=== PATIENT | female | born 1975 | race Caucasian/White ===

== ENCOUNTER 2021-04-29 05:05 | Emergency (ER) | payer BC ==
[2021-04-29 06:06] LABS: ANION GAP 17.1 mEq/L (7-13)
[2021-04-29] MEDS ORDERED: Sodium Chloride 0.9% 1,000 ML IV ONE (06:07)
[2021-04-29] MEDS ORDERED: Ondansetron 4 MG/2 ML SDV IVPUSH ONE (06:08)
--- NOTE | 2021-04-29 06:31 | EDM.PDOC ---
<Eduardo Gilliland M - Last Filed: 04/29/21 09:28> ED HPI GENERAL MEDICAL PROBLEM - General Chief Complaint: Genitourinary Problem Stated Complaint: STOMACH PAIN Time Seen by Provider: 04/29/21 05:30 - Related Data Allergies Allergy/AdvReac Type Severity Reaction Status Date / Time codeine Allergy Nausea and Verified 04/29/21 05:16 Vomiting Home Meds: Home Meds Fluticasone/Umeclidin/Vilanter [Trelegy Ellipta 100-62.5-25] 1 inh INH DAILY 04/29/21 [History] Topiramate [Trokendi Xr] 50 mg PO BID 04/29/21 [History] buPROPion HCL [Bupropion Xl] 300 mg PO DAILY 04/29/21 [History] busPIRone [Buspar] 10 mg PO BID 04/29/21 [History] metFORMIN HCl [Metformin HCl] 500 mg PO DAILY 04/29/21 [History] traZODone HCl [Trazodone HCl] 100 mg PO DAILY 04/29/21 [History] Course - Re-Assessments/Exams Free Text/Narrative Re-Assessment/Exam: 04/29/21 08:17 Patient care was taken over at shift change. The patient reports an increase in anxiety due to being in the ED. The patient was advised of the lab results. Treatment for her UTI was initiated with an IV dose of Cipro. The patient reported she did have a yeast infection the previous time she was started on antibiotics for a UTI. Departure - Departure Time of Disposition: 09:28 Disposition: Home, Self-Care 01 Condition: Fair Clinical Impression: UTI, Urinary tract infectious disease, Kidney stone - Discharge Information *PRESCRIPTION DRUG MONITORING PROGRAM REVIEWED*: Not Applicable *COPY OF PRESCRIPTION DRUG MONITORING REPORT IN PATIENT ROXANNA: Not Applicable Instructions: Kidney Stones, [id number], Urinary Tract Infection, Adult, [id number] Forms: ED Department Discharge Care Plan Goals: The patient was advised of the examination, lab, EKG and CT results during the visit. The patient was given a dose of IV Cipro while in the ED. The patient was discharged with a script for Cipro (500 mg) #10 to take 1 by mouth 2 times per day for 5 days and Diflucan (150 mg) #1 to take 1 by mouth at symptom onset. If the patient has any additional symptoms or concerns, the patient should either return to the ED or visit her primary care facility. <Carolina Winn - Last Filed: 05/03/21 02:16> ED HPI GENERAL MEDICAL PROBLEM - General Source of Information: Reports: Patient, RN History Limitations: Reports: No Limitations - History of Present Illness INITIAL COMMENTS - FREE TEXT/NARRATIVE: ED urinary frequency past week, does not feel like emptying bladder, burning earlier, none now. No fever or chills, diabetic , oral agent,. Nausea , some dry heaves, loss of appetite, no constipation. reports mostly diarrhea from metformin. 20# weight loss since February. Lower Back Pain Score (Numeric/FACES): 8 Past Medical History Respiratory History: Reports: COPD Genitourinary History: Reports: UTI, Recurrent Psychiatric History: Reports: Depression, Suicide Attempt - Past Surgical History HEENT Surgical History: Reports: Tonsillectomy GI Surgical History: Reports: Cholecystectomy Female Surgical History: Reports: Hysterectomy, Other (See Below) Other Female Surgeries/Procedures: bladder sling Social & Family History - Tobacco Use Tobacco Use Status *Q: Never Tobacco User Second Hand Smoke Exposure: No - Recreational Drug Use Recreational Drug Use: No ED ROS GENERAL - Review of Systems Review Of Systems: Comprehensive ROS is negative, except as noted in HPI. ED EXAM, RENAL/ - Physical Exam Exam: See Below Exam Limited By: No Limitations General Appearance: Alert, Mild Distress, Obese Eye Exam: Bilateral Eye: EOMI Ears: Normal External Exam, Hearing Grossly Normal Nose: Normal Inspection Throat/Mouth: Normal Inspection Head: Atraumatic, Normocephalic Neck: Normal Inspection Respiratory/Chest: No Respiratory Distress, Lungs Clear, Normal Breath Sounds Cardiovascular: Regular Rate, Rhythm GI/Abdominal: Normal Bowel Sounds, Soft, Non-Tender Back Exam: No: CVA Tenderness (L), CVA Tenderness (R) Extremities: Normal Inspection, Normal Range of Motion Neurological: Alert, Oriented, Normal Cognition Psychiatric: Flat Affect Skin Exam: Warm, Dry, Pallor #1 Interpretation EKG Date: 04/29/21 Time: 05:28 Rhythm: NSR Rate (Beats/Min): 69 [place]: Normal P-Wave: Present QRS: Normal ST-T: Normal Comparison: NA - No Prior EKG Course - Vital Signs Last Recorded V/S: Last Vital Signs Temp 96.9 F 04/29/21 05:11 Pulse 71 04/29/21 05:11 Resp 18 04/29/21 05:11 BP 83/60 L 04/29/21 05:11 Pulse Ox 95 04/29/21 05:11 - Orders/Labs/Meds Labs: Laboratory Tests 04/29/21 04/29/21 04/29/21 Range/Units 05:35 05:35 05:35 WBC 10.7 H (5.0-10.0) 10^3/uL RBC 4.71 (4.2-5.4) 10^6/uL Hgb 13.4 (12.0-16.0) g/dL Hct 41.3 (37.0-47.0) % MCV 87.7 (80-100) fL MCH 28.5 (27.0-34.0) pg MCHC 32.4 L (33.0-35.0) g/dL Plt Count 341 (150-450) 10^3/uL Neut % (Auto) 83.4 H (42.2-75.2) % Lymph % (Auto) 9.0 L (20.5-50.1) % [place] % (Auto) 6.4 (2-8) % Eos % (Auto) 1.0 (1.0-3.0) % Baso % (Auto) 0.2 (0.0-1.0) % Sodium 139 (136-145) mmol/L Potassium 4.1 (3.5-5.1) mmol/L Chloride 103 (98-107) mmol/L Carbon Dioxide 23 (21-32) mmol/L Anion Gap 17.1 H (7-13) mEq/L BUN 18 (7-18) mg/dL Creatinine 1.20 H (0.55-1.02) mg/dL Est Cr Clr Drug Dosing 47.94 mL/min Estimated GFR (MDRD) 48 BUN/Creatinine Ratio 15.0 (No establ ref range) Glucose 165 H (70-99) mg/dL Lactic Acid 1.3 (0.4-2.0) mmol/L Calcium 9.4 (8.5-10.1) mg/dL Total Bilirubin 0.4 (0.2-1.0) mg/dL AST 14 L (15-37) U/L ALT 34 (14-59) U/L Alkaline Phosphatase 82 (46-116) U/L Total Protein 8.0 (6.4-8.2) g/dL Albumin 3.7 (3.4-5.0) g/dL Globulin 4.3 Albumin/Globulin Ratio 0.9 Urine Color (YELLOW) Urine Appearance (CLEAR) Urine pH (5.0-9.0) Ur Specific [place] (1.005-1.030) Urine Protein (NEGATIVE) Urine Glucose (UA) (NEGATIVE) Urine Ketones (NEGATIVE) Urine Occult Blood (NEGATIVE) Urine Nitrite (NEGATIVE) Urine Bilirubin (NEGATIVE) Urine Urobilinogen (0.2-1.0) mg/dL Ur Leukocyte Esterase (NEGATIVE) Urine RBC /HPF Urine WBC (0-5/HPF) /HPF Ur Epithelial Cells (NOT SEEN) /HPF Calcium Oxalate Crystal (NOT SEEN) /HPF Urine Bacteria (0-FEW/HPF) /HPF Urine Yeast (NOT SEEN) /HPF // Range/Units 06:11 WBC (5.0-10.0) 10^3/uL RBC (4.2-5.4) 10^6/uL Hgb (12.0-16.0) g/dL Hct (37.0-47.0) % MCV (80-100) fL MCH (27.0-34.0) pg MCHC (33.0-35.0) g/dL Plt Count (150-450) 10^3/uL Neut % (Auto) (42.2-75.2) % Lymph % (Auto) (20.5-50.1) % [place] % (Auto) (2-8) % Eos % (Auto) (1.0-3.0) % Baso % (Auto) (0.0-1.0) % Sodium (136-145) mmol/L Potassium (3.5-5.1) mmol/L Chloride (98-107) mmol/L Carbon Dioxide (21-32) mmol/L Anion Gap (7-13) mEq/L BUN (7-18) mg/dL Creatinine (0.55-1.02) mg/dL Est Cr Clr Drug Dosing mL/min Estimated GFR (MDRD) BUN/Creatinine Ratio (No establ ref range) Glucose (70-99) mg/dL Lactic Acid (0.4-2.0) mmol/L Calcium (8.5-10.1) mg/dL Total Bilirubin (0.2-1.0) mg/dL AST (15-37) U/L ALT (14-59) U/L Alkaline Phosphatase (46-116) U/L Total Protein (6.4-8.2) g/dL Albumin (3.4-5.0) g/dL Globulin Albumin/Globulin Ratio Urine Color Dark yellow (YELLOW) Urine Appearance Slightly cloudy (CLEAR) Urine pH 5.5 (5.0-9.0) Ur Specific [place] >= 1.030 (1.005-1.030) Urine Protein 30 H (NEGATIVE) Urine Glucose (UA) Negative (NEGATIVE) Urine Ketones Trace H (NEGATIVE) Urine Occult Blood Large H (NEGATIVE) Urine Nitrite Negative (NEGATIVE) Urine Bilirubin Small H (NEGATIVE) Urine Urobilinogen 0.2 (0.2-1.0) mg/dL Ur Leukocyte Esterase Trace H (NEGATIVE) Urine RBC 50-75 H /HPF Urine WBC 10-20 H (0-5/HPF) /HPF Ur Epithelial Cells Many H (NOT SEEN) /HPF Calcium Oxalate Crystal Moderate H (NOT SEEN) /HPF Urine Bacteria Many H (0-FEW/HPF) /HPF Urine Yeast Moderate H (NOT SEEN) /HPF Meds: Medications Discontinued Medications Generic Name Dose Route Start Last Admin Trade Name Freq PRN Reason Stop Dose Admin Sodium Chloride 1,000 mls @ 999 mls/hr 04/29/21 06:07 04/29/21 06:17 Normal Saline IV 04/29/21 07:07 999 mls/hr .BOLUS ONE Administration Ciprofloxacin/Dextrose 400 mg/ 200 mls @ 200 mls/hr 04/29/21 08:12 04/29/21 08:56 Premix IV 04/29/21 09:11 200 mls/hr ONETIME ONE Administration Lorazepam 0.5 mg 04/29/21 07:56 04/29/21 08:05 Lorazepam 2 Mg/Ml Sdv IVPUSH 04/29/21 07:57 0.5 mg ONETIME ONE Administration Ondansetron HCl 4 mg 04/29/21 06:08 04/29/21 06:18 Ondansetron 4 Mg/2 Ml Sdv IVPUSH 04/29/21 06:09 4 mg ONETIME ONE Administration Sepsis Event Note (ED) - Evaluation Sepsis Screening Result: No Definite Risk
[2021-04-29] MEDS ORDERED: LORazepam 2 MG/ML SDV IVPUSH ONE (07:56)
[2021-04-29] MEDS ORDERED: Ciprofloxacin in D5W 400 MG in Premix Bag 1 BAG IV ONE ×2 (08:12)
--- NOTE | 2021-04-29 08:44 | CT ---
PROCEDURE INFORMATION: Exam: CT Abdomen And Pelvis Without Contrast Exam date and time: 04/29/2021 6:40 AM Age: 46 years old Clinical indication: Abdominal pain; Flank; Other: Bi lateral; Prior surgery; Surgery type: Cholecystectomy, partial hysterectomy; Additional info: Hematuria, abominal pain TECHNIQUE: Imaging protocol: Computed tomography of the abdomen and pelvis without contrast. Radiation optimization: All CT scans at this facility use at least one of these dose optimization techniques: automated exposure control; mA and/or kV adjustment per patient size (includes targeted exams where dose is matched to clinical indication); or iterative reconstruction. COMPARISON: No relevant prior studies available. FINDINGS: Lungs: Left lower lobe consolidation with associated air bronchograms and coarse calcifications. Pleural spaces: Left lung base pleural thickening. Liver: Normal. No mass. Gallbladder and bile ducts: The patient is status post cholecystectomy. Pancreas: Pancreatic lipomatosis Spleen: Normal. No splenomegaly. Adrenal glands: Normal. No mass. Kidneys and ureters: Mild right hydronephrosis and hydroureter which may be due to a calcification which is now within the dependent portion of the urinary bladder measuring 3 mm. No nephrolithiasis; No left hydronephrosis; There is a 3 mm calcification on image number 127 series 2 which may represent a phlebolith rather than a distal ureteric calculus Stomach and bowel: Unremarkable. No obstruction. No mucosal thickening. Appendix: No evidence of appendicitis. Intraperitoneal space: There is an elevated right hemidiaphragm present on the current examination. Vasculature: Unremarkable. No abdominal aortic aneurysm. Lymph nodes: Unremarkable. No enlarged lymph nodes. Urinary bladder: Unremarkable as visualized. Reproductive: Unremarkable as visualized. Bones/joints: Unremarkable. No acute fracture. Soft tissues: Unremarkable. IMPRESSION: 1. Left lower lobe consolidation with associated air bronchograms and coarse calcifications. 2. Mild right hydronephrosis and hydroureter which may be due to a calcification which is now within the dependent portion of the urinary bladder measuring 3 mm.
== END 2021-04-29 10:11 | disposition home or self-care (01) ==
LOC: DL.ED 05:05
DX: N13.2 Hydronephrosis with renal and ureteral calculous obstruction (principal); N39.0 Urinary tract infection, site not specified; J44.9 Chronic obstructive pulmonary disease, unspecified; Z88.5 Allergy status to narcotic agent
CPT/HCPCS: 36415; 74176; 80053; 81001; 83605; 85025; 87086; 93005; 96365; 96375; 99283; 99284-25; J0744; J2060; J2405; J7030

== ENCOUNTER 2021-11-22 08:03 | Emergency (ER) | payer BC ==
[2021-11-22 09:24] LABS: CORONAVIRUS COVID-19 NAA POSITIVE (NEGATIVE)
[2021-11-22 10:34] LABS: ANION GAP 16.9 mEq/L (7-13)
[2021-11-22] MEDS ORDERED: Iopamidol 755 Mg/ML 100 ML Bottle IVPUSH ONE (10:46)
[2021-11-22] MEDS ORDERED: cefTRIAXone 1 GM in Sodium Chloride 0.9% 50 ML IV ONE (11:34)
[2021-11-22] MEDS ORDERED: Sodium Chloride 0.9% 500 ML IV ONE (11:36)
== END 2021-11-22 13:27 | disposition home or self-care (01) ==
LOC: DL.ED 08:03
DX: U07.1 COVID-19 (principal); J12.82 Pneumonia due to coronavirus disease 2019; J44.9 Chronic obstructive pulmonary disease, unspecified; E11.9 Type 2 diabetes mellitus without complications; Z88.5 Allergy status to narcotic agent; Z79.84 Long term (current) use of oral hypoglycemic drugs; Z87.891 Personal history of nicotine dependence
CPT/HCPCS: 0240U; 36415; 71260; 80053; 83605; 84484; 85025; 85379; 85610; 87040; 96365; 99285; J0696; J7040; Q9967